=== PATIENT | male | born 1980 | race Caucasian/White ===

== ENCOUNTER 2018-02-11 22:37 | Inpatient (IN) ==
[2018-02-11] MEDS ORDERED: Sod Chloride 0.9% Inj 1,000 ML IV.CONT SCH (22:45)
--- NOTE | 2018-02-11 22:57 | ED ---
HPI General Chief Complaint: Trauma Stated Complaint: transfer Time Seen by Provider: 02/11/18 22:45 Source: patient and EMS Mode of arrival: EMS Limitations: physical limitation History of Present Illness HPI Narrative: 37 years old male complains of mid back pain. Patient fell off a roof about 10 foot height this afternoon. Patient was seen at the emergency room at [facility] in [place]. CT scan of the head, cervical spine, lumbar spine, abdomen pelvis done at that time. CT of the head revealed no acute intracranial injury. CT cervical spine revealed no acute injury. CT lumbar spine shows acute T12 chance fracture, acute mildly displaced right L1 transverse process fracture, acute mildly displaced right L2 transverse process fracture, bilateral L5 pars defect. CT scan abdomen pelvis shows acute T12 fracture, unstable. No acute intra-abdominal hemorrhage or solid organ injury. Patient was transferred to [facility] for evaluation and further treatment. Complaint: Reports back pain Onset (ago): hour(s) Duration: Reports constant Similar Symptoms Previously: No Location: Reports thoracic spine Severity: moderate Quality: Reports sharp Radiation: Reports none Severity scale (1-10): 7 Relieving factors: immobilization and medication Exacerbating factors: movement Context: Reports fall Associated symptoms: Reports denies other symptoms Treatments prior to arrival: Reports other medications Related Data Home Medications Medication Instructions Recorded Confirmed No Known Home Medications 02/11/18 02/11/18 Allergies Allergy/AdvReac Type Severity Reaction Status Date / Time No Known Allergies Allergy Verified 02/11/18 22:45 Review of Systems ROS: all other systems reviewed are negative PMFSH History History 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 SKIN: Focused skin assessment warm/dry. HEAD: Normocephalic. EYES: No scleral icterus. No injection or drainage. NECK: Supple, trachea midline. No JVD or lymphadenopathy. CARDIOVASCULAR: Regular rate and rhythm without murmurs, gallops, or rubs. RESPIRATORY: Breath sounds equal bilaterally. No accessory muscle use. GASTROINTESTINAL: Abdomen soft, non-tender, nondistended. MUSCULOSKELETAL: No cyanosis, or edema. BACK: Patient has moderate tenderness on palpation lower thoracic upper lumbar area, Without obvious deformity. No CVA tenderness. Neurologic exam normal. Course Initial Documented Vital Signs Temperature 98.2 F 02/11/18 23:02 Pulse Rate 89 02/11/18 23:02 Respiratory Rate 16 02/11/18 23:02 Blood Pressure 154/89 H 02/11/18 23:02 Pulse Oximetry 98 02/11/18 23:02 Last Documented Vital Signs Temperature 99.0 F 02/12/18 19:07 Pulse Rate 81 02/12/18 19:07 Respiratory Rate 17 02/12/18 19:07 Blood Pressure 127/73 02/12/18 19:07 Pulse Oximetry 97 02/12/18 19:07 Medical Decision Making [facility] Narrative Medical Screen Exam Complete: Yes Emergency Medical Condition: Yes Lab Data Result diagrams: 02/11/18 23:05 02/11/18 23:05 Lab Results 02/11/18 02/11/18 02/11/18 Range/Units 23:05 23:05 23:05 WBC 11.1 H (4.0-11.0) th/mm3 RBC 4.84 (4.50-5.90) mil/mm3 Hgb 14.7 (13.0-17.0) gm/dL Hct 43.5 (39.0-51.0) % MCV 89.9 (80.0-100.0) fL MCH 30.3 (27.0-34.0) pg MCHC 33.7 (32.0-36.0) % RDW 13.3 (11.6-17.2) % Plt Count 229 (150-450) th/mm3 MPV 8.1 (7.0-11.0) fL Neut % (Auto) 77.1 H (16.0-70.0) % Lymph % (Auto) 14.0 (9.0-44.0) % [place] % (Auto) 7.2 (0.0-8.0) % Eos % (Auto) 1.2 (0.0-4.0) % Baso % (Auto) 0.5 (0.0-2.0) % Neut # (Auto) 8.6 H (1.8-7.7) th/mm3 Lymph # (Auto) 1.6 (1.0-4.8) th/mm3 [place] # (Auto) 0.8 (0.0-0.9) th/mm3 Eos # (Auto) 0.1 (0.0-0.4) th/mm3 Baso # (Auto) 0.1 (0.0-0.2) th/mm3 WBC Differential . Differential Comment Auto diff final PT 10.4 (9.8-11.6) sec INR 1.0 Ratio Sodium 143 (136-145) meq/L Potassium 3.8 (3.5-5.1) meq/L Chloride 110 H (98-107) meq/L Carbon Dioxide 24.0 (21.0-32.0) meq/L Anion Gap 9 (5-15) meq/L BUN 12 (7-18) mg/dL Creatinine 0.89 (0.60-1.30) mg/dL Estimated GFR Greater than 89 (>89) mL/min Random Glucose 154 H (74-106) mg/dL Calcium 7.4 L* (8.5-10.1) mg/dL Calcium Adj for Albumin 8.0 L (8.5-10.1) mg/dL Total Bilirubin 0.5 (0.2-1.0) mg/dL AST 66 H (15-37) U/L ALT 60 (12-78) U/L Alkaline Phosphatase 139 H (45-117) U/L Total Protein 7.1 (6.4-8.2) g/dL Albumin 3.2 L (3.4-5.0) g/dL Nasal Screen MRSA (PCR) (Negative) 02/12/18 Range/Units 08:08 WBC (4.0-11.0) th/mm3 RBC (4.50-5.90) mil/mm3 Hgb (13.0-17.0) gm/dL Hct (39.0-51.0) % MCV (80.0-100.0) fL MCH (27.0-34.0) pg MCHC (32.0-36.0) % RDW (11.6-17.2) % Plt Count (150-450) th/mm3 MPV (7.0-11.0) fL Neut % (Auto) (16.0-70.0) % Lymph % (Auto) (9.0-44.0) % [place] % (Auto) (0.0-8.0) % Eos % (Auto) (0.0-4.0) % Baso % (Auto) (0.0-2.0) % Neut # (Auto) (1.8-7.7) th/mm3 Lymph # (Auto) (1.0-4.8) th/mm3 [place] # (Auto) (0.0-0.9) th/mm3 Eos # (Auto) (0.0-0.4) th/mm3 Baso # (Auto) (0.0-0.2) th/mm3 WBC Differential Differential Comment PT (9.8-11.6) sec INR Ratio Sodium (136-145) meq/L Potassium (3.5-5.1) meq/L Chloride (98-107) meq/L Carbon Dioxide (21.0-32.0) meq/L Anion Gap (5-15) meq/L BUN (7-18) mg/dL Creatinine (0.60-1.30) mg/dL Estimated GFR (>89) mL/min Random Glucose (74-106) mg/dL Calcium (8.5-10.1) mg/dL Calcium Adj for Albumin (8.5-10.1) mg/dL Total Bilirubin (0.2-1.0) mg/dL AST (15-37) U/L ALT (12-78) U/L Alkaline Phosphatase (45-117) U/L Total Protein (6.4-8.2) g/dL Albumin (3.4-5.0) g/dL Nasal Screen MRSA (PCR) Not detected (Negative) Imaging Data Radiologist's impression: Chest X-Ray 02/11/18 22:45 CONCLUSION: No acute cardiopulmonary disease. Lumbar Spine MRI 02/12/18 22:45 CONCLUSION: 1. Minimal acute compression of T12 and L1 without significant canal compromise. Thoracic Spine MRI 02/12/18 22:45 CONCLUSION: 1. Minimal acute compression of T12 and L1 described in detail on the MRI of the lumbar spine. 2. There is no canal compromise Discharge Plan Discharge Disposition Patient Disposition: ED Admit(ED Internal Use Only) Discharge Condition Condition: Stable Discharge Order Discharge Orders: ED Use Only Admit Order (Routine); Ordered 02/12/18 Ordered By: Rahul Uriarte Discharge Details Diagnosis: Fracture of thoracic spine Physicians Team ED Provider: Abhinav Espinosa Primary Care Provider: Primary Care Beatriz Jalloh Attending Provider: Chaka August Other Providers: Stefan Quintanilla ; Chaka August ; Jeffrey Rodriguez ; [employer] ; Kyrie Patle ; Ayana Israel ; Austin Polanco ; Ally Chan ; Lisbeth Palomares ; Alfa Beck Status ED Status: Left Department Discharge Information Discharge Date/Time: 02/12/18 05:00
--- NOTE | 2018-02-11 23:14 | XR ---
EXAM DATE: 02/11/2018 11:11 PM EST AGE/SEX: 37 years / Male INDICATIONS: Trauma. Fall from roof. CLINICAL DATA: This is the patient's initial encounter. Patient reports that signs and symptoms have been present for 1 day and indicates a pain score of Nonresponsive. MEDICAL/SURGICAL HISTORY: None. None. COMPARISON: No prior exams available for comparison. FINDINGS: A single AP view of the chest demonstrates the lungs to be symmetrically aerated without evidence of mass, infiltrate or effusion. The cardiomediastinal contours are unremarkable. Osseous structures a re intact. CONCLUSION: No acute cardiopulmonary disease. Electronically signed by: Mihir Duarte MD Board Certified Radiologist 02/11/2018 11:12 PM EST
[2018-02-11] MEDS: Morphine Sulfate Inj 2 MG/ML Vial IV.PUSH PRN (23:19)
[2018-02-11 23:22] LABS: Baso # (Auto) 0.1 th/mm3 (0.0-0.2); Baso % (Auto) 0.5 % (0.0-2.0); Eos # (Auto) 0.1 th/mm3 (0.0-0.4); Eos % (Auto) 1.2 % (0.0-4.0); Hematocrit 43.5 % (39.0-51.0); Hemoglobin 14.7 gm/dL (13.0-17.0); Lymph # (Auto) 1.6 th/mm3 (1.0-4.8); Mean Corpuscular HGB Conc 33.7 % (32.0-36.0); Mean Corpuscular Hemoglobin 30.3 pg (27.0-34.0); Mean Corpuscular Volume 89.9 fL (80.0-100.0); Mean Platelet Volume 8.1 fL (7.0-11.0); Mono # (Auto) 0.8 th/mm3 (0.0-0.9); Mono % (Auto) 7.2 % (0.0-8.0); Neut # (Auto) 8.6 th/mm3 (1.8-7.7); Neut % (Auto) 77.1 % (16.0-70.0); Platelet Count 229 th/mm3 (150-450); Red Blood Count 4.84 mil/mm3 (4.50-5.90); Red Cell Distribution Width 13.3 % (11.6-17.2); White Blood Count 11.1 th/mm3 (4.0-11.0)
[2018-02-11 23:31] LABS: Prothrombin Time 10.4 sec (9.8-11.6)
[2018-02-11 23:47] LABS: Alanine Aminotransferase 60 U/L (12-78); Albumin 3.2 g/dL (3.4-5.0); Alkaline Phosphatase 139 U/L (45-117); Anion Gap 9 meq/L (5-15); Aspartate Aminotransferase 66 U/L (15-37); Blood Urea Nitrogen 12 mg/dL (7-18); Calcium 7.4 mg/dL (8.5-10.1); Chloride 110 meq/L (98-107); Glomerular Filtration Rate Greater Than 89 mL/min (>89); Glucose,Random 154 mg/dL (74-106); Potassium 3.8 meq/L (3.5-5.1); Sodium 143 meq/L (136-145); Total Protein 7.1 g/dL (6.4-8.2)
[2018-02-12] MEDS: Morphine Sulfate Inj 2 MG/ML Vial IV.PUSH PRN ×3 (03:18→17:19)
--- NOTE | 2018-02-12 08:51 | P.PN ---
Subjective Interval history: Trauma PTD: 1 Patient lying in bed. No distress noted. No complaints offered. Physical Exam Vital signs: Vital Signs 02/11/18 23:02 02/12/18 02:28 02/12/18 03:54 Temperature 98.2 F Pulse Rate 89 89 Respiratory Rate 16 16 16 Blood Pressure 154/89 H 114/75 Pulse Oximetry 98 100 02/12/18 05:09 02/12/18 05:45 Temperature 98.3 F Pulse Rate 73 Respiratory Rate 17 17 Blood Pressure 136/88 Pulse Oximetry 98 Intake & Output 02/11/18 02/12/18 02/12/18 18:59 06:59 18:59 Weight 75.8 kg Other: Weight On Admission 75.8 kg Narrative: GENERAL: This is a 37-year-old male lying in bed. No distress noted. SKIN: Warm and dry. HEAD: Atraumatic. Normocephalic. EYES: PERRLA ENT: No nasal bleeding or discharge. Mucous membranes pink and moist. NECK: Trachea midline. No JVD. CARDIOVASCULAR: Regular rate and rhythm. RESPIRATORY: No accessory muscle use. Lungs are clear to auscultation. Breath sounds equal bilaterally. No distress or dyspnea. GASTROINTESTINAL: BS + x 4 quads. Abdomen soft, non-tender, nondistended. MUSCULOSKELETAL: Extremities without cyanosis, or edema. + peripheral pulses x 4 extremities. Warm with good capillary refill and sensation. MAEW. NEUROLOGICAL: Awake and alert. Normal speech and pattern. Results - Labs CBC & Chem 7: 02/11/18 23:05 02/11/18 23:05 Laboratory Results - last 24 hr 02/11/18 02/11/18 02/11/18 23:05 23:05 23:05 WBC 11.1 H RBC 4.84 Hgb 14.7 Hct 43.5 MCV 89.9 MCH 30.3 MCHC 33.7 RDW 13.3 Plt Count 229 MPV 8.1 Neut % (Auto) 77.1 H Lymph % (Auto) 14.0 [place] % (Auto) 7.2 Eos % (Auto) 1.2 Baso % (Auto) 0.5 Neut # (Auto) 8.6 H Lymph # (Auto) 1.6 [place] # (Auto) 0.8 Eos # (Auto) 0.1 Baso # (Auto) 0.1 WBC Differential . Differential Comment Auto diff final PT 10.4 INR 1.0 Sodium 143 Potassium 3.8 Chloride 110 H Carbon Dioxide 24.0 Anion Gap 9 BUN 12 Creatinine 0.89 Estimated GFR Greater than 89 Random Glucose 154 H Calcium 7.4 L* Calcium Adj for Albumin 8.0 L Total Bilirubin 0.5 AST 66 H ALT 60 Alkaline Phosphatase 139 H Total Protein 7.1 Albumin 3.2 L - Imaging Impressions Chest X-Ray 02/11/18 22:45 CONCLUSION: No acute cardiopulmonary disease. Assessment and Plan - Assessment (1) Fracture of thoracic spine Code(s): S22.009A - Unspecified fracture of unspecified thoracic vertebra, initial encounter for closed fracture Status: Acute - Plan EKWOK: This is a 37-year-old male who sustained a fall. He fell from a roof approximately 10 feet. Trauma transfer from [facility]. INJURIES: T12 chance fx L1 compression fx L1, [id number] process fx BILAT L 5 pars defect PMHx Procedures: Consults: Neurosurgery. Case management. Diet: Regular diet. Tolerating po diet. Encourage good po intake with each meal. Pulmonary: Encourage good pulmonary toileting. IS at bedside and pt encouraged to use. Rationale for use explained to patient, and verbalized understanding. PAIN Management: [place]oster 5-7.5 mg q4h. Morphine 2 mg q 4h for breakthrough pain. Activity: BR. PT and OT ordered. (log roll till custom TLSO brace) GI prophylaxis: Pepcid 20 mg BID po Bowel regimen: Katherin-Colace. MOM. Lactulose PRN. LBM: 0 DVT prophylaxis: Mechanical VTE with SCDs. Chemical management TBD. DC Planning: Case management consulted for assistance with final discharge disposition. PT evaluation needed, and custom TLSO brace. Emotional support provided to patient at bedside and plan of care discussed. Discussed with RN at bedside. Discussed pt condition and plan of care with collaborating trauma surgeon. Patient is hemodynamically stable and being managed on the med/surg floor. The trauma team will round each day, and evaluate plan of care on a daily basis. T12 chance fx L1 compression fx L1, [id number] process fx BILAT L 5 pars defect Neurosurgery consulted and assisting in management and care Fractures are nonoperative Supportive care Pain management Patient will need custom TLSO brace made Currently bed rest -logroll Once TLSO brace obtained, patient may be out of bed. PT and OT ordered Bowel regimen SCDs for DVT prophylaxis (1) Fracture of thoracic spine Qualifiers: Encounter type: initial encounter Thoracic vertebra fracture level: T12 Fracture type: closed Fracture morphology: other fracture Qualified Code(s): S22.088A - Other fracture of T11-T12 vertebra, initial encounter for closed fracture
[2018-02-12] MEDS: Senna/Docusate Sodium 8.6/50 MG Tablet PO SCH ×2 (09:00→21:08)
[2018-02-12] MEDS: Famotidine 20 MG Tablet PO SCH ×2 (09:00→21:07)
--- NOTE | 2018-02-12 09:02 | P.CONNS ---
History of Present Illness Service: Neurosurgery Consult date: 02/12/18 Requesting Physician: Chaka August (Trauma surgery) Reason for Consult: L1 fracture Primary Care Provider: No Primary Care Physician History of Present Illness: 37-year-old gentleman who fell off a roof yesterday on his feet and hyperflexed his back leaning forward without loss of consciousness. Complained of severe back pain and was taken to [facility] emergency room where trauma workup was undertaken including CT of the head and cervical and lumbar spine and was found to have an T12 mild anterior vertebral body compression with bilateral facet fractures with maintained alignment. He was transferred to [facility] under trauma surgery service and neurosurgery consultation requested. Patient does not speak Spanish very well and there is a friend with him who he resides with that helped he can communicate with [place] translation. Review of Systems Constitutional: Denies anorexia, Denies body ache(s), Denies chills, Denies daytime sleepiness, Denies excessive sweating, Denies fatigue, Denies fever(s), Denies headache(s), Denies increased appetite, Denies lack of energy, Denies malaise, Denies night sweats, Denies weakness, Denies weight gain, Denies weight loss, Denies other Eyes: Denies blind spots, Denies blurry vision, Denies bulging eyes, Denies change in vision, Denies double vision, Denies discharge, Denies dry eyes, Denies floaters, Denies irritation, Denies itchy eyes, Denies loss of vision, Denies pain, Denies requires corrective lenses, Denies sensitivity to light, Denies other Ears, Nose, Mouth, and Throat: Denies abnormal hearing, Denies bleeding gums, Denies bad breath, Denies change in voice, Denies dental pain, Denies difficulty swallowing, Denies dizziness, Denies dry mouth, Denies ear discharge , Denies ear pain, Denies facial pain, Denies headache(s), Denies hearing loss, Denies hoarseness, Denies lip swelling, Denies nosebleed, Denies mouth lesions, Denies mouth pain, Denies nasal congestion, Denies nasal discharge, Denies nasal obstruction, Denies nasal trauma, Denies neck lump, Denies neck pain, Denies nose pain, Denies pain with swallowing, Denies poor balance, Denies post nasal drip, Denies ringing in the ears, Denies sinus pain, Denies sinus pressure , Denies sore throat, Denies throat swelling, Denies tongue swelling, Denies other Cardiovascular: Denies chest pain, Denies chest pain at rest, Denies chest pain with activity, Denies excessive sweating, Denies fainting, Denies fast heart rate, Denies foot swelling, Denies generalized swelling, Denies irregular heart rhythm, Denies leg pain with activity, Denies leg sores, Denies leg swelling, Denies lightheadedness, Denies radiating jaw, neck or arm pain, Denies rapid, pounding, or irregular heartbeat, Denies shortness of breath, Denies shortness of breath with activity, Denies shortness of breath when lying down, Denies shortness of breath causing sudden awakening, Denies slow heart rate, Denies other Respiratory: Denies change in phlegm color, Denies chest congestion, Denies cough, Denies coughing up blood, Denies excessive phlegm production, Denies pain on inspiration, Denies pain with cough, Denies shortness of breath, Denies shortness of breath with activity, Denies snoring, Denies stridor, Denies wheezing, Denies other Gastrointestinal: Denies abdominal pain, Denies belching, Denies black, tarry stools, Denies bloating, Denies bright, red blood in stools, Denies change in bowel habits, Denies constant urge to pass stool, Denies change in stools, Denies coffee ground vomit, Denies constipation, Denies cramping, Denies difficulty swallowing, Denies excessive passing of gas, Denies feeling full early, Denies heartburn, Denies incontinent of stools, Denies loose stools, Denies nausea, Denies pain with swallowing, Denies vomiting, Denies vomiting blood, Denies other Genitourinary: Denies blood in semen, Denies blood in urine, Denies decreased urination, Denies difficulty urinating, Denies difficulty with ejaculations, Denies erectile dysfunction, Denies genital lesions, Denies genital pain, Denies painful urination, Denies side pain, Denies frequent nighttime urination , Denies painful ejaculations, Denies penile discharge, Denies scrotal swelling , Denies testicle lump, Denies testicle pain, Denies urinary frequency, Denies urinary hesitancy, Denies urinary incontinence, Denies urinary urgency, Denies other Musculoskeletal: Reports back pain, Denies abnormal walking, Denies body aches, Denies decreased muscle mass, Denies deformity, Denies joint pain, Denies joint swelling, Denies limited joint movement, Denies loss of height, Denies muscle cramps, Denies muscle weakness, Denies neck pain, Denies numbness, Denies radiating pain into limb, Denies stiffness, Denies tingling, Denies other Skin/Breast: Denies acne, Denies bleeding lesions, Denies boil, Denies breast swelling, Denies breast skin changes, Denies breast pain, Denies breast lump, Denies change in breast shape, Denies change in hair, Denies change in skin color, Denies changing lesions, Denies dry skin, Denies excessive hair growth, Denies hair loss, Denies itching, Denies lesions, Denies nail changes, Denies new lesions, Denies nipple discharge, Denies non-healing lesions, Denies redness , Denies sensitivity to light, Denies rash, Denies skin pain, Denies skin ulcer , Denies sores, Denies stretch upton, Denies unusual bruising, Denies wounds, Denies yellowing of the skin, Denies other Neurologic: Denies abnormal hearing, Denies abnormal movements, Denies abnormal speech, Denies abnormal walking, Denies behavioral changes, Denies burning sensations, Denies confusion, Denies dizziness, Denies fainting, Denies frequent falls, Denies headache(s), Denies lack of coordination, Denies localized weakness, Denies loss of vision, Denies memory loss, Denies numbness, Denies other visual disturbances, Denies radiating pain, Denies restless legs, Denies convulsions, Denies seizure-like activity, Denies sensory deficit, Denies tingling, Denies tingling/numbness/burning sensations, Denies tremor(s), Denies unsteadiness, Denies weakness, Denies other Endocrine: Denies cold intolerance, Denies excessive sweating, Denies flushing, Denies heat intolerance, Denies increased hunger, Denies increased thirst, Denies increased urination, Denies rapid, pounding, or irregular heartbeat, Denies other Hematologic/Lymphatic: Denies easy bleeding, Denies easy bruising, Denies enlarged lymph nodes, Denies other Allergic/Immunologic: Denies GI upset with certain foods, Denies hives, Denies itchy eyes, Denies lip swelling, Denies seasonal runny nose, Denies throat swelling, Denies tongue swelling, Denies wheezing, Denies other PMFSH - History History Provided By: Patient, Friend - Medical / Surgical Hx Neg / Unobtainable Medical Problems Denied: Yes Surgical History: No Previous Surgery - Tobacco History Second Hand Smoke Exposure: Yes Tobacco Use In Past 30 Days: Yes Smoking Status: Current some day smoker Tobacco Type: Cigarettes - Alcohol History How Often Do You Have a Drink Containing Alcohol: 4 or more times a week - Substance Use History Substance History: No History of Abuse - Travel History Recent Travel in the [facility] Within the Last 8 Weeks: No Recent Travel Out of the Country Within the Last 8 Weeks: No - Immunization History Tetanus Immunization: Unsure Hx Influenza Vaccine This Season: No Medications and Allergies Active Medications: Active Medications Hydrocodone Bitart/Acetaminophen ([place] 7.5/325) 1 tab PO Q4H PRN PRN Reason: PAIN SCALE 6 TO 10 Hydrocodone Bitart/Acetaminophen ([place] 5/325) 1 tab PO Q4H PRN PRN Reason: PAIN SCALE 1 TO 5 Al Hydroxide/Mg Hydroxide (Milk Of Magnesia Liq) 30 ml PO BID [facility] Bacitracin (Baciguent Oint) 1 applicatio TOPICAL BID [facility] Famotidine (Pepcid) 20 mg PO BID [facility] Sodium Chloride (Ns Inj) 1,000 mls @ 125 mls/hr IV.CONT .Q8H [facility] Last Admin: 02/11/18 23:19 Dose: 125 mls/hr Lactulose (Lactulose Liq) 30 ml PO DAILY PRN PRN Reason: CONSTIPATION Morphine Sulfate (Morphine Inj) 2 mg IV.PUSH Q4H PRN PRN Reason: Acute Pain Last Admin: 02/12/18 07:55 Dose: 2 mg Ondansetron HCl (Zofran Inj) 4 mg IV.PUSH Q6H PRN PRN Reason: MILD NAUSEA Senna/Docusate Sodium (Katherin-Colace) 1 tab PO BID [facility] Sodium Chloride (Ns Flush) 2 ml IV.FLUSH UNSCH PRN PRN Reason: FLUSH AFTER USING IV ACCESS Allergies Allergy/AdvReac Type Severity Reaction Status Date / Time No Known Allergies Allergy Verified 02/11/18 22:45 Home Medications Medication Instructions Recorded Confirmed Type No Known Home Medications 02/11/18 02/11/18 History Exam Vital signs: Vital Signs 02/11/18 23:02 02/12/18 02:28 02/12/18 03:54 Temperature 98.2 F Pulse Rate 89 89 Respiratory Rate 16 16 16 Blood Pressure 154/89 H 114/75 Pulse Oximetry 98 100 02/12/18 05:09 02/12/18 05:45 Temperature 98.3 F Pulse Rate 73 Respiratory Rate 17 17 Blood Pressure 136/88 Pulse Oximetry 98 Intake & Output 02/11/18 02/12/18 02/12/18 18:59 06:59 18:59 Weight 75.8 kg Other: Weight On Admission 75.8 kg - Constitutional no acute distress - Routine HEENT Exam Head: Present: normocephalic, atraumatic (Old right forehead laceration which is well approximated and healed) Eye: Present: EOMI, PERRL ENT: Present: mucous membranes moist, oropharynx clear, external ear normal - Routine Neck Exam Present: supple, full ROM - Routine Respiratory Exam Present: CTA bilaterally - Routine Cardiovascular Exam Present: RRR, S1, S2 - Routine Abdominal Exam Present: soft, normoactive bowel sounds - Routine Extremities Exam Present: full ROM, pulses intact - Routine Skin Exam Present: intact - Routine Neurological Exam Present: oriented X3, CN II-XII intact, plantar reflex, moving all extremities, normal speech - Detailed Neurological Exam: Coma Scale Eye Opening: Spontaneous Verbal Response: Oriented Motor Response: Obey commands Stark Coma Scale Total: 15 - Routine Psychiatric Exam Present: normal affect, normal thought process, cooperative, good insight, good judgment Results - Laboratory Findings CBC and BMP: 02/11/18 23:05 02/11/18 23:05 Abnormal lab findings: Abnormal Labs 02/11/18 02/11/18 23:05 23:05 WBC 11.1 H Neut % (Auto) 77.1 H Neut # (Auto) 8.6 H Chloride 110 H Random Glucose 154 H Calcium 7.4 L* Calcium Adj for Albumin 8.0 L AST 66 H Alkaline Phosphatase 139 H Albumin 3.2 L - Diagnostic Findings Additional findings: CT scan of the lumbar spine from [facility] was reviewed and shows mild T12 anterior vertebral body wedge compression deformity without retropulsion and bilateral facet fractures. There is no spondylolisthesis noted. Impressions Chest X-Ray 02/11/18 22:45 CONCLUSION: No acute cardiopulmonary disease. Assessment and Plan - Assessment (1) Fracture of thoracic spine Code(s): S22.009A - Unspecified fracture of unspecified thoracic vertebra, initial encounter for closed fracture Status: Acute - Plan 37-year-old gentleman with T12 bilateral facet fracture is a mild anterior vertebral body compression wedge deformity without retropulsion or stenosis or spondylolisthesis. Recommend bedrest with spinal logroll precautions until a custom TLSO brace can be fitted. Will obtain upright thoracolumbar spine x- rays with brace on to ensure that there is no kyphosis with axial loading and if not then he can continue with conservative management with a TLSO brace. He will require 4 months of brace whenever he is upright or out of bed and no lifting pushing pulling more than 10 pounds or any construction work. Discussed with patient and friend at bedside. (1) Fracture of thoracic spine Qualifiers: Encounter type: initial encounter Thoracic vertebra fracture level: T12 Fracture type: closed Fracture morphology: other fracture Qualified Code(s): S22.088A - Other fracture of T11-T12 vertebra, initial encounter for closed fracture
--- NOTE | 2018-02-12 10:48 | MR ---
EXAM DATE: 02/12/2018 10:43 AM EST AGE/SEX: 37 years / Male INDICATIONS: Fracture. Fall from roof. CLINICAL DATA: This is the patient's subsequent encounter. Patient reports that signs and symptoms h ave been present for 2 days and indicates a pain score of 6/10. MEDICAL/SURGICAL HISTORY: None. None. COMPARISON: No prior exams available for comparison. TECHNIQUE: Multiplanar, multisequence MRI of the lumbar spine was performed without contrast. Patie nt was scanned in a sitting position; neutral, flexion, and extension scans were performed in the sa gittal plane. FINDINGS: There is minimal edema in the T12 and L1 vertebral bodies consistent with minimal acute compression. There is no significant loss of vertebral body heights. The conus is unremarkable. There is no epidural hematoma. T12-L1: The thecal sac has a normal diameter. No evidence of disc bulge or protrusion. The neural foramina are patent bilaterally. L1-L2: The thecal sac has a normal diameter. No evidence of disc bulge or protrusion. The neural foramina are patent bilaterally. L2-L3: The thecal sac has a normal diameter. No evidence of disc bulge or protrusion. The neural foramina are patent bilaterally. L3-L4: The thecal sac has a normal diameter. No evidence of disc bulge or protrusion. The neural foramina are patent bilaterally. L4-L5: The thecal sac has a normal diameter. No evidence of disc bulge or protrusion. The neural foramina are patent bilaterally. L5-S1: Very minimal disc bulging without stenosis or neural foraminal encroachment. Retroperitoneum is unremarkable. CONCLUSION: 1. Minimal acute compression of T12 and L1 without significant canal compromise. Electronically signed by: Evans Jordan MD Board Certified Radiologist 02/12/2018 10:46 AM EST
--- NOTE | 2018-02-12 10:49 | MR ---
EXAM DATE: 02/12/2018 10:35 AM EST AGE/SEX: 37 years / Male INDICATIONS: Fracture. Fall from roof. CLINICAL DATA: This is the patient's subsequent encounter. Patient reports that signs and symptoms h ave been present for 2 days and indicates a pain score of 6/10. MEDICAL/SURGICAL HISTORY: None. None. COMPARISON: No prior exams available for comparison. TECHNIQUE: Multiplanar, multisequence MRI of the thoracic spine was performed. FINDINGS: Again seen is a minimal subtle edema in T12 and L1 described in detail on the MR of the lumbar spine consistent with an acute compression fracture without significant loss of vertebral body heights. T1-T2: The thecal sac has a normal diameter. No evidence of disc bulge or protrusion. T2-T3: The thecal sac has a normal diameter. No evidence of disc bulge or protrusion. T3-T4: The thecal sac has a normal diameter. No evidence of disc bulge or protrusion. T4-T5: The thecal sac has a normal diameter. No evidence of disc bulge or protrusion. T5-T6: The thecal sac has a normal diameter. No evidence of disc bulge or protrusion. T6-T7: The thecal sac has a normal diameter. No evidence of disc bulge or protrusion. T7-T8: The thecal sac has a normal diameter. No evidence of disc bulge or protrusion. T8-T9: The thecal sac has a normal diameter. No evidence of disc bulge or protrusion. T9-T10: The thecal sac has a normal diameter. No evidence of disc bulge or protrusion. T10-T11: The thecal sac has a normal diameter. No evidence of disc bulge or protrusion. T11-T12: The thecal sac has a normal diameter. No evidence of disc bulge or protrusion. T12-L1: The thecal sac has a normal diameter. No evidence of disc bulge or protrusion. CONCLUSION: 1. Minimal acute compression of T12 and L1 described in detail on the MRI of the lumbar spine. 2. There is no canal compromise Electronically signed by: Evans Jordan MD Board Certified Radiologist 02/12/2018 10:48 AM EST
--- NOTE | 2018-02-12 12:21 | MH ---
cc: Chaka August MD DATE OF ADMISSION: 02/12/2018 CHIEF COMPLAINT: Trauma transfer, routine. HISTORY OF PRESENT ILLNESS: The patient is a 37-year-old Malawian-speaking male who was transferred from [facility] after a fall at a golf course. The patient had severe back pain and presented to the emergency department at [facility]. He then underwent evaluation and he was found to have an intact airway breathing and circulation. He was neurologically intact x4 extremities and muscle movement and sensation. He did have an evaluation including CT scans of the thoracic and lumbar spine, which did show compression fracture of T12, L1. There was no significant canal compromise. The patient was transferred here for neurosurgical evaluation at [facility]. The patient has no other complaints other than back pain. Denies numbness, tingling, weakness or any neurologic symptoms in his lower extremities at this time. REVIEW OF SYSTEMS: A 12-point review of systems was reviewed and is negative except for history of above. PAST MEDICAL HISTORY: None. PAST SURGICAL HISTORY: None. ALLERGIES: NO KNOWN DRUG ALLERGIES. HOME MEDICATIONS: None. SOCIAL HISTORY: The patient denies alcohol, tobacco or illicit drug use. FAMILY HISTORY: Reviewed and noncontributory. PHYSICAL EXAMINATION: VITAL SIGNS: Temperature 98.3 degrees, heart rate 73, respiratory rate 17, blood pressure 136/88. GENERAL: The patient is a well-developed, well-nourished, male in no acute distress. HEENT: Head is normocephalic, atraumatic. Pupils are round, reactive to light. Sclerae are anicteric. Midface is stable. Oral cavity is clear. Airway is patent. NECK: Supple. No JVD. Cervical spine is nontender to palpation without deformity. CHEST: Chest wall stable without deformity, bilateral breath sounds. HEART: Regular rate and rhythm. ABDOMEN: Soft, nondistended. No seatbelt sign. No organomegaly. No peritonitis or rebound tenderness. BACK: No CVA tenderness. Thoracic and lumbar spine, stable without deformity, tenderness on the lower thoracic and upper lumbar area vaguely more at the midline and lateral. Pelvis is stable without deformity. EXTREMITIES: No instability. No clubbing, cyanosis or edema. NEUROLOGIC: The patient is GCS 15, Malawian speaking, awake and alert, oriented, moving all extremities, 5/5 strength, gross sensation intact x4 extremities. Cranial nerves 2-12 are grossly intact. LABORATORY VALUES: At [place] reveal a hemoglobin 14.7. Review of outside imaging does show Chance fractures as well as fractures of T12 and L1. ASSESSMENT AND PLAN: The patient is a 37-year-old male status post fall from 10 feet while working on a golf course with severe back pain. The patient is neurologically intact. GCS 15, hemodynamically stable. Isolated thoracic and lumbar fracture. Keep the patient on bedrest and consult neurosurgery for further evaluation and management. He will start appropriate prophylaxis and appropriate pain control. Chaka August MD AWG/ct , 11:48 AM , 11:57 AM
--- NOTE | 2018-02-12 15:44 | ECG ---
Date Performed: 02/11/2018 Time Performed: 23:15:01 PTAGE: 37 years EKG: Sinus rhythm NORMAL ECG NO PREVIOUS TRACING DOCTOR: Parth Mays Interpretating Date/Time 02/12/2018 15:43:31
--- NOTE | 2018-02-12 16:43 | OTSOAPIP ---
TIME SESSION COMPLETED: TREATMENT TIME: 0 MINS. CHART REVIEWED. : PATIENT IS 37-year-old BULGARIAN SPEAKING MALE THAT FELL OFF THE ROOF PATIENT SUSTAINED A T12 BILATERAL FACET FRACTURE IS A MILD ANTERIOR VERTEBRAL BODY COMPRESSION WEDGE DEFORMITY WITHOUT RETROPULSION OR STENOSIS OR SPONDYLOLISTHESIS. RECOMMENDATIONS WAS MADE FOR BEDREST WITH SPINAL LOGROLL PRECAUTIONS UNTIL A CUSTOM TLSO BRACE CAN BE FITTED. PATIENT WAS FITTED FOR CUSTOM THORACIC LUMBAR SACRAL ORTHOSIS HOWEVER HAS NOT RECEIVED. PLAN: WILL SEE PATIENT NEXT TREATMENT DAY Therapist: Norm Gardner Signature on file
[2018-02-13 05:14] LABS: Baso # (Auto) 0.1 th/mm3 (0.0-0.2); Baso % (Auto) 0.9 % (0.0-2.0); Eos # (Auto) 0.3 th/mm3 (0.0-0.4); Eos % (Auto) 3.8 % (0.0-4.0); Hematocrit 41.8 % (39.0-51.0); Hemoglobin 14.2 gm/dL (13.0-17.0); Lymph # (Auto) 1.4 th/mm3 (1.0-4.8); Lymph % (Auto) 19.1 % (9.0-44.0); Mean Corpuscular Hemoglobin 30.6 pg (27.0-34.0); Mean Corpuscular Volume 89.9 fL (80.0-100.0); Mono # (Auto) 0.6 th/mm3 (0.0-0.9); Mono % (Auto) 8.9 % (0.0-8.0); Neut # (Auto) 4.9 th/mm3 (1.8-7.7); Neut % (Auto) 67.3 % (16.0-70.0); Platelet Count 207 th/mm3 (150-450); Red Blood Count 4.65 mil/mm3 (4.50-5.90); Red Cell Distribution Width 13.3 % (11.6-17.2); White Blood Count 7.3 th/mm3 (4.0-11.0)
[2018-02-13 05:44] LABS: Anion Gap 8 meq/L (5-15); Blood Urea Nitrogen 13 mg/dL (7-18); Calcium 8.3 mg/dL (8.5-10.1); Carbon Dioxide 27.5 meq/L (21.0-32.0); Chloride 104 meq/L (98-107); Glomerular Filtration Rate Greater Than 89 mL/min (>89); Glucose,Random 117 mg/dL (74-106); Potassium 3.8 meq/L (3.5-5.1); Sodium 139 meq/L (136-145)
[2018-02-13] MEDS: Senna/Docusate Sodium 8.6/50 MG Tablet PO SCH ×2 (08:10→20:31)
[2018-02-13] MEDS: Famotidine 20 MG Tablet PO SCH ×2 (08:10→20:31)
--- NOTE | 2018-02-13 10:48 | P.PNNS ---
Subjective Interval history: doing ok, neuro stable, awaiting custom brace <Irma Pineda - Last Filed: 02/13/18 16:31> Physical Exam Vital signs: Vital Signs 02/12/18 11:54 02/12/18 15:54 02/12/18 19:07 Temperature 98.3 F 98.5 F 99.0 F Pulse Rate 75 86 81 Respiratory Rate 18 18 17 Blood Pressure 135/79 120/70 127/73 Pulse Oximetry 96 95 97 02/12/18 23:05 02/13/18 07:00 Temperature 97.8 F 98.4 F Pulse Rate 72 73 Respiratory Rate 17 16 Blood Pressure 122/75 121/71 Pulse Oximetry 96 96 Intake & Output 02/12/18 02/13/18 02/13/18 18:59 06:59 18:59 Output Total 1300 / 1300 Balance -1300 / -1300 Weight 75.3 kg Output: Urine 1300 / 1300 Other: Date of Last Bowel Movement 02/11/18 02/12/18 Narrative: Awake, alert NAD moves lower extremities 5/5 strength plantars flexors b/l <Irma Pineda - Last Filed: 02/13/18 16:31> Vital signs: Vital Signs 02/15/18 16:00 02/15/18 20:58 02/16/18 00:19 Temperature 97.8 F 98.8 F 97.3 F L Pulse Rate 89 82 80 Respiratory Rate 18 18 18 Blood Pressure 127/82 121/74 126/75 Pulse Oximetry 100 95 93 L 02/16/18 05:07 02/16/18 08:00 02/16/18 12:00 Temperature 97.2 F L 98 F 98.4 F Pulse Rate 79 70 83 Respiratory Rate 18 16 16 Blood Pressure 113/72 119/72 121/80 Pulse Oximetry 94 L 96 96 Intake & Output 02/15/18 02/16/18 02/16/18 18:59 06:59 18:59 Intake Total 0 / 0 Balance 0 / 0 Weight 69.1 kg Intake: Oral 0 / 0 Other: # Voids 0 Date of Last Bowel Movement 02/13/18 02/13/18 02/16/18 # Bowel Movements 0 Narrative: Mr Harding is alert, awake. Comfortable, in no acute distress. Speech is fluent. Cranial nerve examination: pupils to be equal, round and reactive to light. Extra-ocular movements are intact. Facial motor and sensory function are normal and symmetrical. Gross hearing appears intact. Sternocleidomastoid and trapezius muscles are symmetrical. Other cranial nerves are intact. Neck is soft and supple with a good range of motion without pain. Muscle strength is normal in all muscle groups of both upper and lower extremities. Sensory examination is intact to light touch and pin prick in both the upper and lower extremities. Deep tendon reflexes are symmetrical in both upper and lower extremities. There is a bilateral plantar flexion response. Cerebellar examination is unremarkable, without deficits. Lungs are clear Heart regular rhythm is regular rate Skin warm and dry <Juan Wren - Last Filed: 02/16/18 14:00> Assessment and Plan - Plan 37-year-old gentleman with T12 bilateral facet fracture is a mild anterior vertebral body compression wedge deformity without retropulsion or stenosis or spondylolisthesis. Recommend bedrest with spinal logroll precautions until a custom TLSO brace can be fitted. Will obtain upright thoracolumbar spine x- rays with brace on to ensure that there is no kyphosis with axial loading and if not then he can continue with conservative management with a TLSO brace. He will require 4 months of brace whenever he is upright or out of bed and no lifting pushing pulling more than 10 pounds or any construction work. Discussed with patient and friend at bedside. 02/13 neuro stable awaiting custom TLSO brace which has been ordered upright thoracolumbar xrays with TLSO brace <Irma Pineda - Last Filed: 02/13/18 16:31> - Plan 37-year-old gentleman with T12 bilateral facet fracture is a mild anterior vertebral body compression wedge deformity without retropulsion or stenosis or spondylolisthesis. Recommend a custom TLSO brace. Will obtain upright thoracolumbar spine x-rays with brace on to ensure that there is no kyphosis with axial loading and if not then he can continue with conservative management with a TLSO brace. He will require 4 months of brace whenever he is upright or out of bed and no lifting pushing pulling more than 10 pounds or any construction work. Continue neuro checks in a serial fashion. Pulmonary: aggressive pulmonary toilette, nasotracheal suction, and breathing treatments with nebulizers. Daily PT and OT Renal: Continue to monitor closely urine output, BUN and creatinine Endocrine: Continue to Monitor serial Acu checks and SSI as needed in detail ID continue to monitor for signs of infection Continue Protonix for stress ulcer prophylaxis Continue Zhang hose and SCD's for DVT prophylaxis Further recommendations will be provided depending on the patient's clinical evaluation and follow up studies. The exam, history, and the medical decision-making described in the above note were completed with the assistance of the mid-level provider. I reviewed and agree with the findings presented. I attest that I had a [id number] encounter with the patient on the same day, and personally performed and documented my assessment and findings in the medical record. <Juan Wren - Last Filed: 02/16/18 14:00>
[2018-02-13] MEDS: Enoxaparin Inj 30 MG/0.3 ML Syringe SQ SCH (12:30)
--- NOTE | 2018-02-13 12:30 | P.PN ---
Subjective Interval history: Has not been OOB yet, awaiting custom TLSO brace Pain controlled Physical Exam Vital signs: Vital Signs 02/12/18 15:54 02/12/18 19:07 02/12/18 23:05 Temperature 98.5 F 99.0 F 97.8 F Pulse Rate 86 81 72 Respiratory Rate 18 17 17 Blood Pressure 120/70 127/73 122/75 Pulse Oximetry 95 97 96 02/13/18 07:00 02/13/18 11:00 Temperature 98.4 F 98.2 F Pulse Rate 73 74 Respiratory Rate 16 18 Blood Pressure 121/71 119/75 Pulse Oximetry 96 96 Intake & Output 02/12/18 02/13/18 02/13/18 18:59 06:59 18:59 Output Total 1300 / 1300 Balance -1300 / -1300 Weight 75.3 kg Output: Urine 1300 / 1300 Other: Date of Last Bowel Movement 02/11/18 02/12/18 Narrative: GENERAL: 37-year-old well-nourished, well developed male lying in bed. SKIN: Warm and dry. HEAD: Normocephalic. CARDIOVASCULAR: Regular rate and rhythm. RESPIRATORY: No accessory muscle use. Lungs clear to auscultation bilaterally. GASTROINTESTINAL: Abdomen soft, non-tender, nondistended. + BS. MUSCULOSKELETAL: Extremities without cyanosis, or edema. MAEW, + perfused. Strength 5/5 BUE, BLE NEUROLOGICAL: Awake and alert. Normal speech. Results - Labs CBC & Chem 7: 02/13/18 04:56 02/13/18 04:56 Laboratory Results - last 24 hr 02/12/18 02/13/18 02/13/18 08:08 04:56 04:56 WBC 7.3 RBC 4.65 Hgb 14.2 Hct 41.8 MCV 89.9 MCH 30.6 MCHC 34.0 RDW 13.3 Plt Count 207 MPV 8.0 Neut % (Auto) 67.3 Lymph % (Auto) 19.1 [place] % (Auto) 8.9 H Eos % (Auto) 3.8 Baso % (Auto) 0.9 Neut # (Auto) 4.9 Lymph # (Auto) 1.4 [place] # (Auto) 0.6 Eos # (Auto) 0.3 Baso # (Auto) 0.1 WBC Differential . Differential Comment Auto diff final Sodium 139 Potassium 3.8 Chloride 104 Carbon Dioxide 27.5 Anion Gap 8 BUN 13 Creatinine 0.84 Estimated GFR Greater than 89 Random Glucose 117 H Calcium 8.3 L D Nasal Screen MRSA (PCR) Not detected Assessment and Plan - Assessment (1) Fracture of thoracic spine Code(s): S22.009A - Unspecified fracture of unspecified thoracic vertebra, initial encounter for closed fracture Status: Acute - Plan [place]: Fell from a roof approximately 10 feet. Neuro intact. GCS = 15. Trauma transfer. INJURIES: T12 wedge compression fx L1 compression fx T12 wedge compression fx, L1 compression fx Neurosurgery consulted Nonoperative management Pain control Bowel regimen Currently bed rest -logroll OOB once custom TLSO brace arrives- PT and OT ordered Lovenox Plan of care discussed with patient and friend at bedside. Collaborating Trauma surgeon agrees with plan. Case management consulted to assist with discharge planning. Disposition will depend on how patient does with physical therapy once TLSO brace arrives. (1) Fracture of thoracic spine Qualifiers: Encounter type: initial encounter Thoracic vertebra fracture level: T12 Fracture type: closed Fracture morphology: other fracture Qualified Code(s): S22.088A - Other fracture of T11-T12 vertebra, initial encounter for closed fracture
--- NOTE | 2018-02-13 15:14 | XR ---
EXAM DATE: 02/13/2018 3:02 PM EST AGE/SEX: 37 years / Male INDICATIONS: Evaluate T12 fracture follow up. CLINICAL DATA: This is the patient's subsequent encounter. Patient reports that signs and symptoms h ave been present for 1 day and indicates a pain score of 10/10. MEDICAL/SURGICAL HISTORY: None. None. [place] [facility] [place] 02/12/2018. . FINDINGS: 3 views of the thoracolumbar spine demonstrate stable anterior wedging with height loss at the inferi or endplate of T12 and mild height loss of the superior endplate of L1 identical to what was document ed on yesterday's MRI. There is mild kyphosis at T12-L1. Endplate sclerosis and osteophyte is present at the superior anterior endplate at L4. There is mild gaseous distention of the small bowel with multiple air-fluid levels. CONCLUSION: Stable examination of the spine with height loss and anterior wedging of the T12 and mild height loss at the superior endplate of L1. As a result, there is mild kyphosis at T12-L1. Electronically signed by: Jamie Batres MD Board Certified Radiologist 02/13/2018 3:12 PM EST
--- NOTE | 2018-02-13 16:18 | OTSOAPIP ---
TIME SESSION COMPLETED: 1200 TREATMENT TIME: 0 MINS. CHART REVIEWED. PATIENT ON HOLD. PATIENT CONTINUE TO BE ON BED REST. HAS NOT YET RECEIVED HIS ORDERED CUSTOM MADE THORACIC LUMBAR SACRAL ORTHOSIS. PLAN: WILL SEE PATIENT NEXT TREATMENT DAY Therapist: Norm Gardner Signature on file
[2018-02-14] MEDS: Enoxaparin Inj 30 MG/0.3 ML Syringe SQ SCH ×2 (00:45→12:13)
[2018-02-14] MEDS: Famotidine 20 MG Tablet PO SCH ×2 (08:34→21:30)
[2018-02-14] MEDS: Senna/Docusate Sodium 8.6/50 MG Tablet PO SCH ×2 (08:34→21:30)
--- NOTE | 2018-02-14 15:35 | P.PNNS ---
Subjective Interval history: Pain improved with brace-- patient seated in chair Physical Exam Vital signs: Vital Signs 02/13/18 20:00 02/14/18 00:00 02/14/18 04:00 Temperature 98.0 F 97.7 F 97.8 F Pulse Rate 78 73 77 Respiratory Rate 20 20 20 Blood Pressure 117/68 113/81 120/68 Pulse Oximetry 96 95 93 L 02/14/18 07:37 02/14/18 11:09 Temperature 97.2 F L 98.6 F Pulse Rate 80 78 Respiratory Rate 16 16 Blood Pressure 110/78 120/75 Pulse Oximetry 93 L 95 Intake & Output 02/13/18 02/14/18 02/14/18 18:59 06:59 18:59 Intake Total 960 / 960 480 / 480 Output Total 900 / 900 300 / 300 620 / 620 Balance 60 / 60 180 / 180 -620 / -620 Weight 75.6 kg Intake: Oral 960 / 960 480 / 480 Output: Urine 900 / 900 300 / 300 620 / 620 Other: # Voids 1 Date of Last Bowel Movement 02/12/18 02/12/18 Narrative: Awake, alert NAD moves lower extremities 5/5 strength plantars flexors b/l Full strength Assessment and Plan - Assessment (1) Fracture of thoracic spine Code(s): S22.009A - Unspecified fracture of unspecified thoracic vertebra, initial encounter for closed fracture Status: Acute Qualifiers: Encounter type: initial encounter Thoracic vertebra fracture level: T12 Fracture type: closed Fracture morphology: other fracture Qualified Code(s) : S22.088A - Other fracture of T11-T12 vertebra, initial encounter for closed fracture - Plan 37-year-old gentleman with T12 bilateral facet fracture is a mild anterior vertebral body compression wedge deformity without retropulsion or stenosis or spondylolisthesis. Recommend bedrest with spinal logroll precautions until a custom TLSO brace can be fitted. Will obtain upright thoracolumbar spine x- rays with brace on to ensure that there is no kyphosis with axial loading and if not then he can continue with conservative management with a TLSO brace. He will require 4 months of brace whenever he is upright or out of bed and no lifting pushing pulling more than 10 pounds or any construction work. Discussed with patient and friend at bedside. 02/13 neuro stable awaiting custom TLSO brace which has been ordered upright thoracolumbar xrays with TLSO brace 02/14 Brace and xrays stable. Patient's pain is improved with brace. OOB and Act As tolerated with brace x 6 weeks F/u in clinic at that time to reassess T12 compression fx
--- NOTE | 2018-02-14 15:39 | P.DS ---
Date of admission: 02/12/18 02:32 Primary care physician: No Primary Care Physician Brief History from admission: S/P Fall DS: Diagnosis - Discharge Diagnosis (1) Fracture of thoracic spine Status: Acute DS: Medications - Discharge Medications Prescriptions: cyclobenzaprine 10 mg PO Q8HR #30 tab hydrocodone-acetaminophen 1 tab PO Q4H PRN #14 tab PRN Reason: Acute Pain DS: Summary Hospital Course: [place]: Fell from a roof approximately 10 feet. Neuro intact. GCS = 15. Trauma transfer. INJURIES: T12 wedge compression fx L1 compression fx T12 wedge compression fx, L1 compression fx Neurosurgery consulted, F/U outpatient Nonoperative management Pain control Bowel regimen OOB with custom TLSO brace- PT and OT ordered Lovenox F/U with PCP in 1 week Plan of care discussed with patient and friend at bedside. Collaborating Trauma surgeon agrees with plan. Case management consulted to assist with discharge planning. Patient is clear from trauma surgery standpoint to safely DC to SNF. - Time Spent with Patient Total time spent providing and/or coordinating discharge services: Greater than 30 minutes - Quality: VTE Deep Vein Thrombosis/Pulmonary Embolism Present on Admission: No Exam Vital signs: Vital Signs 02/13/18 20:00 02/14/18 00:00 02/14/18 04:00 Temperature 98.0 F 97.7 F 97.8 F Pulse Rate 78 73 77 Respiratory Rate 20 20 20 Blood Pressure 117/68 113/81 120/68 Pulse Oximetry 96 95 93 L 02/14/18 07:37 02/14/18 11:09 Temperature 97.2 F L 98.6 F Pulse Rate 80 78 Respiratory Rate 16 16 Blood Pressure 110/78 120/75 Pulse Oximetry 93 L 95 Intake & Output 02/13/18 02/14/18 02/14/18 18:59 06:59 18:59 Intake Total 960 / 960 480 / 480 Output Total 900 / 900 300 / 300 620 / 620 Balance 60 / 60 180 / 180 -620 / -620 Weight 75.6 kg Intake: Oral 960 / 960 480 / 480 Output: Urine 900 / 900 300 / 300 620 / 620 Other: # Voids 1 Date of Last Bowel Movement 02/12/18 02/12/18 Narrative: GENERAL: 37-year-old well-nourished, well developed male sitting on the EOB with TLSO brace on. SKIN: Warm and dry. HEAD: Normocephalic. CARDIOVASCULAR: Regular rate and rhythm. RESPIRATORY: No accessory muscle use. Lungs clear to auscultation bilaterally. GASTROINTESTINAL: Abdomen soft, non-tender, nondistended. + BS. MUSCULOSKELETAL: Extremities without cyanosis, or edema. MAEW, + perfused. Strength 5/5 BUE, BLE NEUROLOGICAL: Awake and alert. Normal speech. Results Procedures completed during hospitalization: . - Impressions ITS Impressions Chest X-Ray 02/11/18 22:45 CONCLUSION: No acute cardiopulmonary disease. Lumbar Spine MRI 02/12/18 22:45 CONCLUSION: 1. Minimal acute compression of T12 and L1 without significant canal compromise. Thoracic Spine MRI 02/12/18 22:45 CONCLUSION: 1. Minimal acute compression of T12 and L1 described in detail on the MRI of the lumbar spine. 2. There is no canal compromise Thoracolumbar Spine 02/13/18 00:00 CONCLUSION: Stable examination of the spine with height loss and anterior wedging of the T12 and mild height loss at the superior endplate of L1. As a result, there is mild kyphosis at T12-L1. Discharge Plan - Discharge Disposition Patient Disposition: 03 Discharge to SNF - Discharge Condition Condition: Stable - Discharge Order Discharge Orders: Discharge Order (Routine); Ordered 02/14/18 Ordered By: Lisbeth Palomares - Physicians Team Primary Care Provider: Primary Care Shubham,Beatriz Attending Provider: Chaka August Other Providers: Stefan Quintanilla MD ; Chaka August MD ; Jeffrey Rodriguez MD ; [employer] ; Kyrie Patel MD ; Ayana Israel ARNP ; Austin Polanco MD ; Ally Chan MD ; Lisbeth Palomares ARNP ; Alfa Beck MD ; Christal Markham MD ; [facility]
[2018-02-15] MEDS: Enoxaparin Inj 30 MG/0.3 ML Syringe SQ SCH ×3 (01:40→23:59)
[2018-02-15] MEDS: Senna/Docusate Sodium 8.6/50 MG Tablet PO SCH ×2 (10:04→21:11)
[2018-02-15] MEDS: Famotidine 20 MG Tablet PO SCH ×2 (10:04→21:11)
--- NOTE | 2018-02-15 12:58 | P.PN ---
Subjective Interval history: Discharged to SNF Awaiting workman's comp approval and open bed at [facility] Pain controlled Physical Exam Vital signs: Vital Signs 02/14/18 15:38 02/14/18 20:48 02/15/18 00:56 Temperature 98.9 F 98.2 F 97.3 F L Pulse Rate 101 H 91 H 85 Respiratory Rate 16 18 17 Blood Pressure 146/101 H 113/71 124/78 Pulse Oximetry 98 93 L 95 02/15/18 08:00 02/15/18 12:00 Temperature 97.4 F L 97.8 F Pulse Rate 87 89 Respiratory Rate 17 18 Blood Pressure 122/76 129/75 Pulse Oximetry 98 96 Intake & Output 02/14/18 02/15/18 02/15/18 18:59 06:59 18:59 Output Total 620 / 620 Balance -620 / -620 Output: Urine 620 / 620 Other: # Voids 1 Date of Last Bowel Movement 02/12/18 02/12/18 02/13/18 Narrative: GENERAL: 37-year-old well-nourished, well developed male lying in bed in [facility]. SKIN: Warm and dry. CARDIOVASCULAR: Regular rate and rhythm. RESPIRATORY: No accessory muscle use. Lungs clear to auscultation bilaterally. GASTROINTESTINAL: Abdomen soft, non-tender, nondistended. + BS. MUSCULOSKELETAL: Extremities without cyanosis, or edema. MAEW, + perfused. Strength 5/5 BUE, BLE NEUROLOGICAL: Awake and alert. Normal speech. Results - Labs CBC & Chem 7: 02/13/18 04:56 02/13/18 04:56 - Procedures . Assessment and Plan - Assessment (1) Fracture of thoracic spine Code(s): S22.009A - Unspecified fracture of unspecified thoracic vertebra, initial encounter for closed fracture Status: Acute - Plan [place]: Fell from a roof approximately 10 feet. Neuro intact. GCS = 15. Trauma transfer. INJURIES: T12 wedge compression fx L1 compression fx T12 wedge compression fx, L1 compression fx Neurosurgery consulted, F/U outpatient Nonoperative management Pain control Bowel regimen OOB with custom TLSO brace- PT and OT ordered Lovenox F/U with PCP in 1 week Plan of care discussed with patient and friend at bedside. Collaborating Trauma surgeon agrees with plan. Case management consulted to assist with discharge planning. Patient is clear from trauma surgery standpoint to safely DC to SNF. Auth was not obtained prior to holiday break and will not be obtained until Saturday at the earliest. Patient to continue with PT/OT and may progress enough to go home with [facility] before Sat.
--- NOTE | 2018-02-16 06:21 | P.DCO ---
- Physical Therapy Order: Evaluate and treat, Improve ambulation, Strength and gait training - Home Health Nursing Order: Nursing assessment with vital signs - Case Management Consult Case Management Consult-Home Health: Yes - Certification I have seen patient Milton Harding on 02/16/18. My clinical findings support the need for the requested home health care services because: Limited mobility due to disease progression, Deconditioned with increased weakness, Limited ability to care for self I certify that my clinical findings support that this patient is homebound because: Impaired cognitive ability/safety
[2018-02-16] MEDS: Famotidine 20 MG Tablet PO SCH ×2 (10:00→21:20)
[2018-02-16] MEDS: Senna/Docusate Sodium 8.6/50 MG Tablet PO SCH ×2 (10:02→21:19)
--- NOTE | 2018-02-16 10:15 | P.PN ---
Subjective Interval history: Progressing well with PT, now a min assist OOB. Clear to DC home with [facility] when arrangements made Eating well Physical Exam Vital signs: Vital Signs 02/15/18 12:00 02/15/18 16:00 02/15/18 20:58 Temperature 97.8 F 97.8 F 98.8 F Pulse Rate 89 89 82 Respiratory Rate 18 18 Blood Pressure 129/75 127/82 121/74 Pulse Oximetry 96 100 95 02/16/18 00:19 02/16/18 05:07 02/16/18 08:00 Temperature 97.3 F L 97.2 F L 98 F Pulse Rate 80 79 70 Respiratory Rate 18 18 16 Blood Pressure 126/75 113/72 119/72 Pulse Oximetry 93 L 94 L 96 Intake & Output 02/15/18 02/16/18 02/16/18 18:59 06:59 18:59 Intake Total 0 / 0 Balance 0 / 0 Weight 69.1 kg Intake: Oral 0 / 0 Other: # Voids 0 Date of Last Bowel Movement 02/13/18 02/13/18 # Bowel Movements 0 Narrative: GENERAL: 37-year-old well-nourished, well developed male lying in bed with custom TLSO brace in place. SKIN: Warm and dry. CARDIOVASCULAR: Regular rate and rhythm. RESPIRATORY: No accessory muscle use. Lungs clear to auscultation bilaterally. GASTROINTESTINAL: Abdomen soft, non-tender, nondistended. + BS. MUSCULOSKELETAL: Extremities without cyanosis, or edema. MAEW, + perfused. Strength 5/5 BUE, BLE NEUROLOGICAL: Awake and alert. Normal speech. Results - Labs CBC & Chem 7: 02/13/18 04:56 02/13/18 04:56 - Procedures . Assessment and Plan - Assessment (1) Fracture of thoracic spine Code(s): S22.009A - Unspecified fracture of unspecified thoracic vertebra, initial encounter for closed fracture Status: Acute - Plan [place]: Fell from a roof approximately 10 feet. Neuro intact. GCS = 15. Trauma transfer. INJURIES: T12 wedge compression fx L1 compression fx T12 wedge compression fx, L1 compression fx Neurosurgery consulted, F/U outpatient Nonoperative management Pain control Bowel regimen OOB with custom TLSO brace- PT and OT ordered Lovenox F/U with PCP in 1 week Plan of care discussed with patient at bedside. Collaborating Trauma surgeon agrees with plan. Case management consulted to assist with discharge planning. Patient is clear from trauma surgery standpoint to safely DC to SNF. Auth was not obtained prior to holiday break for SNF placement. Patient now a min assist OOB and can now go home with [facility] when arrangements made. D/W charge master specialist. - Attending Attestation patient seen at bedside pain better cleared from pt discussed the importance of wearing brace nsg following The exam, history, and the medical decision-making described in the above note were completed with the assistance of the mid-level provider. I reviewed and agree with the findings presented. I attest that I had a [id number] encounter with the patient on the same day, and personally performed and documented my assessment and findings in the medical record. (1) Fracture of thoracic spine Qualifiers: Encounter type: initial encounter Thoracic vertebra fracture level: T12 Fracture type: closed Fracture morphology: other fracture Qualified Code(s): S22.088A - Other fracture of T11-T12 vertebra, initial encounter for closed fracture
[2018-02-16] MEDS: Enoxaparin Inj 30 MG/0.3 ML Syringe SQ SCH (15:30)
[2018-02-17] MEDS: Enoxaparin Inj 30 MG/0.3 ML Syringe SQ SCH (00:16)
[2018-02-17] MEDS: Famotidine 20 MG Tablet PO SCH (09:13)
[2018-02-17] MEDS: Senna/Docusate Sodium 8.6/50 MG Tablet PO SCH (09:14)
--- NOTE | 2018-02-17 10:16 | P.DS ---
Date of admission: 02/12/18 02:32 Primary care physician: No Primary Care Physician Brief History from admission: S/P Fall DS: Diagnosis - Discharge Diagnosis (1) Fracture of thoracic spine Status: Acute (2) Fall from roof as cause of accidental injury Status: Acute (3) Lumbar vertebral fracture Status: Acute DS: Medications - Discharge Medications Prescriptions: cyclobenzaprine 10 mg PO Q8HR #30 tab hydrocodone-acetaminophen 1 tab PO Q4H PRN #14 tab PRN Reason: Acute Pain DS: Summary Hospital Course: [facility]: Fell from a roof approximately 10 feet. Neuro intact. GCS = 15. Trauma transfer. INJURIES: T12 wedge compression fx L1 compression fx T12 wedge compression fx, L1 compression fx Neurosurgery consulted, F/U outpatient Nonoperative management Pain control Bowel regimen OOB with custom TLSO brace- PT and OT ordered Lovenox F/U with PCP in 1 week Plan of care discussed with patient and RN at bedside. Collaborating Trauma surgeon agrees with plan. Case management consulted to assist with discharge planning. Patient is clear from trauma surgery standpoint to safely DC home w/ HHC. - Time Spent with Patient Total time spent providing and/or coordinating discharge services: Greater than 30 minutes - Quality: VTE Deep Vein Thrombosis/Pulmonary Embolism Present on Admission: No Exam Vital signs: Vital Signs 02/16/18 12:00 02/16/18 16:00 02/16/18 20:00 Temperature 98.4 F 98.1 F 98.1 F Pulse Rate 83 88 85 Respiratory Rate 16 16 18 Blood Pressure 121/80 121/63 120/77 Pulse Oximetry 96 96 93 L 02/16/18 23:38 02/17/18 01:30 02/17/18 04:30 Temperature 97 F L 98.1 F Pulse Rate 85 73 Respiratory Rate 18 17 18 Blood Pressure 116/76 112/66 Pulse Oximetry 94 L 93 L 02/17/18 08:00 Temperature 97.6 F Pulse Rate 61 Respiratory Rate 20 Blood Pressure 92/63 L Pulse Oximetry 93 L Intake & Output 02/16/18 02/17/18 02/17/18 18:59 06:59 18:59 Intake Total 1200 / 1200 100 / 100 Balance 1200 / 1200 100 / 100 Weight 73.6 kg Intake: Oral 1200 / 1200 100 / 100 Other: # Voids 4 1 Date of Last Bowel Movement 02/16/18 02/16/18 # Bowel Movements 2 0 Results Procedures completed during hospitalization: . - Impressions ITS Impressions Chest X-Ray 02/11/18 22:45 CONCLUSION: No acute cardiopulmonary disease. Lumbar Spine MRI 02/12/18 22:45 CONCLUSION: 1. Minimal acute compression of T12 and L1 without significant canal compromise. Thoracic Spine MRI 02/12/18 22:45 CONCLUSION: 1. Minimal acute compression of T12 and L1 described in detail on the MRI of the lumbar spine. 2. There is no canal compromise Thoracolumbar Spine 02/13/18 00:00 CONCLUSION: Stable examination of the spine with height loss and anterior wedging of the T12 and mild height loss at the superior endplate of L1. As a result, there is mild kyphosis at T12-L1. Discharge Plan - Discharge Disposition Patient Disposition: /Home Health Service - Discharge Condition Condition: Stable - Discharge Order Discharge Orders: Discharge Order (Routine); Ordered 02/14/18 Ordered By: Lisbeth Palomares - Physicians Team Primary Care Provider: Primary Care Shubham,Beatriz Attending Provider: Chaka August Other Providers: Stefan Quintanilla MD ; Chaka August MD ; Jeffrey Rodriguez MD ; [employer] ; Kyrie Patel MD ; Ayana Israel ARNP ; Austin Polanco MD ; Ally Chan MD ; Lisbeth Palomares ARNP ; Alfa Beck MD ; Christal Markham MD ; [facility],[place]
[2018-02-17 12:09] VITALS: BP 114/75; PULSE 76; RESP 18; TEMP 97.8; O2SAT 95
== END 2018-02-17 15:19 | disposition home health service (06) ==
LOC: NEPE 22:37 → NEDA 02-12 02:32 → N06 02-12 04:57
PROVIDERS: ADMIT Surgery; ATTEND Surgery